=== PATIENT | male | born 1990 | race African-American/Black ===

== ENCOUNTER 2020-09-17 21:24 | Emergency (ER) | payer OTHER, MEDICAID, SELFPAY ==
[2020-09-17 21:33] VITALS: BP 135/86; PULSE 64; RESP 18; TEMP 36.3; O2SAT 100
--- NOTE | 2020-09-17 21:39 | DI.RAD.S_ITS ---
PROCEDURE: XR CHEST 2V INDICATIONS: panic,can not get a good breath TECHNIQUE: 2 views of the chest were acquired. COMPARISON: None. FINDINGS: Surgical changes and devices: None. Lungs and pleura: Lungs are clear. No pleural effusions or pneumothorax. Mediastinum: Mediastinal contours are normal. Heart size is normal. Bones and chest wall: No suspicious bony abnormalities. Soft tissues appear unremarkable. IMPRESSION: 1. No acute cardiopulmonary disease. Dictated by: Sylvain Oliveira M.D. on 09/17/2020 at 21:53 Approved by: Sylvain Oliveira M.D. on 09/17/2020 at 21:54
[2020-09-17 23:59] LABS: COVID19 -Nasal RAPID Negative (Negative)
[2020-09-18 00:05] VITALS: BP 129/79; PULSE 60; RESP 18; O2SAT 98
[2020-09-18 00:51] LABS: Basophils Absolute Auto 0 /uL (0-100); Basophils Percent Auto 0.3 % (0-2); Eosinophils Absolute Auto 200 /uL (0-450); Eosinophils Percent Auto 3.1 % (2-4); Hematocrit 45.9 % (41-53); Hemoglobin 14.2 g/dL (13.5-17.5); Lymphocytes Absolute Auto 2300 /uL (1100-4500); Lymphocytes Percent Auto 33.4 % (25-40); Mean Corpuscular HGB Conc 30.9 % (30-36); Mean Corpuscular Hemoglobin 20.6 PG (26-34); Mean Corpuscular Volume 66.5 fL (80-100); Monocytes Absolute Auto 700 /uL (0-900); Monocytes Percent Auto 10.4 % (3-14); Neutrophils Absolute Auto 3700 /uL (1500-7000); Neutrophils Percent Auto 52.8 % (50-75); Platelet Count 193 X10^3/uL (150-400); Red Cell Distribution Width 15.3 % (11.6-14.8); White Blood Cell Count 6.9 X10^3/uL (4.5-11.0)
[2020-09-18 00:52] LABS: Add Manual Diff / Slide Review SLIDE REVIEW
[2020-09-18 00:55] LABS: Alanine Aminotransferase 82 IU/L (<50); Albumin 4.5 g/dL (3.5-5.0); Albumin Globulin Ratio 1.4 (1.0-2.8); Alkaline Phosphatase 68 U/L (38-126); Aspartate Aminotransferase 40 IU/L (17-59); BUN Creatinine Ratio 20.6 (6-22); Bilirubin Total 0.9 mg/dL (0.2-1.3); Blood Urea Nitrogen 22 mg/dL (9-20); Calcium 9.5 mg/dL (8.4-10.2); Carbon Dioxide 28 mmol/L (22-32); Chloride 102 mmol/L (98-107); Creatine Kinase 78 U/L (55-170); Estimated Glomerular Filt Rate > 60.0 mL/min (>60); Globulin 3.3 g/dL (1.7-4.1); Glucose 111 mg/dL (70-100); HEMOLYSIS < 15 (0-50); Potassium 3.9 mmol/L (3.4-5.1); Sodium 139 mmol/L (137-145); Total Protein 7.8 g/dL (6.3-8.2)
[2020-09-18 01:06] LABS: Troponin I < 0.012 ng/mL (0.01-0.034)
[2020-09-18 01:30] VITALS: BP 135/85; PULSE 68; RESP 20; O2SAT 98
[2020-09-18 01:34] LABS: Anisocytosis 2+; Microcytosis 1+
--- NOTE | 2020-09-18 02:21 | ED.URI ---
HPI - URI/Sore Throat General Chief Complaint: Upper Respiratory Symptoms Stated Complaint: difficulty breathing, CP Time Seen by Provider: 09/17/20 23:03 Source: patient Mode of arrival: Ambulatory Limitations: no limitations History of Present Illness HPI Narrative: This is a 30-year-old male comes in with complaint of cough that has been chronic and ongoing. He states he has also had some difficulty breathing where he wakes up and feels like it is hard to breathe the middle of the night. Patient has not had fevers. He denies chills. He denies any chest pain and symptoms do not seem to be related to exertion. Patient has not had any swelling of the extremities. He denies any other GI or urinary symptoms currently. Patient does note that his has CPAP but he has tried it and found it helpful. Patient finds that his symptoms are worsen worse overnight and when he is sleeping. He does not have any known major issues. He is a former smoker and used to vape. He quit a couple months ago. He does note that he has a history of alpha thalassemia. He does not follow with anyone regularly but has been told he is anemic in the past. He denies any major cardiac family history, pulmonary embolic history. Related Data Previous Rx's Medication Instructions Recorded famotidine 40 mg tablet (Pepcid) 40 mg PO DAILY #30 tab 09/18/20 Review of Systems Review of Systems ROS Unobtainable: All systems reviewed & are unremarkable except as noted in HPI and below Patient History Medical History (Updated 09/18/20 @ 02:52 by Marialuisa Carranza DO) Alpha (0) thalassemia Social History Smoking Status: Former smoker Smoking Status: Former smoker alcohol intake frequency: holidays/special occasions only Substance Use Type: does not use Exam Narrative Exam Narrative: GENERAL: Alert and oriented x three, well-nourished male in mild distress. HEENT: Head normocephalic, atraumatic, EOMI, pupils reactive, face symmetric, moist mucous membranes NECK: Supple, full range of motion CARDIOVASCULAR: Regular rate and rhythm without murmurs, rubs or gallops. RESPIRATORY: Breath sounds equal bilaterally, no wheezes rales or rhonchi. ABDOMEN: Soft, nontender. Normoactive bowel sounds all 4 quadrants. No guarding or rebound, rigidity, no mass : No CVA tenderness EXTREMITIES: Normal range of motion, no clubbing or edema. Neurovascularly intact NEUROLOGICAL: Cranial nerves II through XII grossly intact. Moving all extremities SKIN: Warm, dry, no petechiae, no rashes or lesions. Initial Vital Signs Initial Vital Signs: Vital Signs Temperature 97.3 F L 09/17/20 21:33 Pulse Rate 64 09/17/20 21:33 Respiratory Rate 18 09/17/20 21:33 Blood Pressure 135/86 09/17/20 21:33 Pulse Oximetry 100 09/17/20 21:33 Scores HEART Score Heart Score history: Slightly Suspicious Heart Score EKG: Non-Specific repolarization disturbance Heart Score Age: < 45 years old Heart Score risk factors: No known risk factors Heart Score troponin: < or = to normal limit Heart Score Total: 1 Course Orders Ordered: ED Orders 09/17/20 21:39 Chest [XR chest 2V] Stat 09/18/20 EKG-12 Lead Stat 09/18/20 00:38 Complete Blood Count AUTO DIFF Stat Comprehensive Metabolic Panel Stat Troponin & CK Cardiac Panel Stat 09/18/20 00:40 COVID19 -Nasal swab/Pre-Proc Stat Vital Signs Vital signs: Vital Signs - 8 hr 09/17/20 21:33 Temperature 97.3 F L Pulse Rate 64 Respiratory Rate 18 Blood Pressure 135/86 Pulse Oximetry 100 MDM - URI/Sore Throat Lab Data Result diagrams: 09/18/20 00:38 09/18/20 00:38 Labs: Lab Results 09/17/20 09/18/20 09/18/20 Range/Units 23:15 00:38 00:38 WBC 6.9 (4.5-11.0) X10^3/uL RBC 6.90 H (4.5-5.9) X10^6/uL Hgb 14.2 (13.5-17.5) g/dL Hct 45.9 (41-53) % MCV 66.5 L (80-100) fL MCH 20.6 L (26-34) PG MCHC 30.9 (30-36) % RDW 15.3 H (11.6-14.8) % Plt Count 193 (150-400) X10^3/uL Neut % (Auto) 52.8 (50-75) % Lymph % (Auto) 33.4 (25-40) % Dickens % (Auto) 10.4 (3-14) % Eos % (Auto) 3.1 (2-4) % Baso % (Auto) 0.3 (0-2) % Neut # (Auto) 3700 (1943-0211) /uL Lymph # (Auto) 2300 (7186-3729) /uL Dickens # (Auto) 700 (0-900) /uL Eos # (Auto) 200 (0-450) /uL Baso # (Auto) 0 (0-100) /uL RBC Morphology See below Anisocytosis 2+ H Microcytosis 1+ H Sodium 139 (137-145) mmol/L Potassium 3.9 (3.4-5.1) mmol/L Chloride 102 (98-107) mmol/L Carbon Dioxide 28 (22-32) mmol/L BUN 22 H (9-20) mg/dL Creatinine 1.07 (0.66-1.25) mg/dL Estimated GFR > 60.0 (>60) mL/min BUN/Creatinine Ratio 20.6 (6-22) Glucose 111 H (70-100) mg/dL Calcium 9.5 (8.4-10.2) mg/dL Total Bilirubin 0.9 (0.2-1.3) mg/dL AST 40 (17-59) IU/L ALT 82 H (<50) IU/L Alkaline Phosphatase 68 (38-126) U/L Total Creatine Kinase 78 (55-170) U/L CK-MB (CK-2) TNP CK-MB (CK-2) Rel Index TNP Troponin I < 0.012 (0.01-0.034) ng/mL Total Protein 7.8 (6.3-8.2) g/dL Albumin 4.5 (3.5-5.0) g/dL Globulin 3.3 (1.7-4.1) g/dL Albumin/Globulin Ratio 1.4 (1.0-2.8) SARS-CoV-2 (PCR) Negative (Negative) Imaging Data Chest x-ray: Radiologist's Impression: Gómez Fox 30 M [address] [id number] ReportSigned Patient: Gómez Fox R#: [id number]: 1990Acct:[id number]/Sex: 30 / MDate of Service: 09/17/20Loc: EDAccession Number: [id number] Procedure: XR chest 2V Ordering Provider: Marialuisa Carranza D.O. PROCEDURE: XR CHEST 2V INDICATIONS: panic,can not get a good breath TECHNIQUE: 2 views of the chest were acquired. COMPARISON: None. FINDINGS: Surgical changes and devices: None. Lungs and pleura: Lungs are clear. No pleural effusions or pneumothorax. Mediastinum: Mediastinal contours are normal. Heart size is normal. Bones and chest wall: No suspicious bony abnormalities. Soft tissues appear unremarkable. IMPRESSION: 1. No acute cardiopulmonary disease. Dictated by: Sylvain Oliveira M.D. on 09/17/2020 at 21:53 Approved by: Sylvain Oliveira M.D. on 09/17/2020 at 21:54 ECG Data Interpretation: Sinus bradycardia with sinus arrhythmia. Rate of 50 7p are 174 QRS 88 QTC 4 for 3. Nonspecific change. MDM Narrative Medical decision making narrative: this a 30-year-old male comes emergency department complaint of difficulty breathing and cough particularly worsened at night. Patient states he had tried some antihistamines which she has found minimal helpful. His has a sleep apnea machine which he has found somewhat helpful. He does have a history of using tobacco in the form of vaping and has quit recently. Patient's labs, chest x-ray and EKG are not concerning. Discussed with patient he needs to set up a primary care to follow up for his thalassemia, primary care referral was given so that he can be evaluated for possible sleep study, PFTs if needed and also discussed trying some Pepcid as reflux can also sometimes cause cough or episodes of difficulty breathing and this would be an easy initial step to try for his symptoms. Patient feels comfortable with this plan. All questions were answered. Return precautions were discussed. Discharge Plan Departure Patient Disposition: Home Clinical Impression: Cough Instructions: Cough Activity Restrictions/Additional Instructions: There are many reasons for your symptoms. A primary care physician can help you be further evaluated, evaluate you for risk factors and make sure to optimize your health. Included below is referral. If they are unable to take your insurance. Call the number on your insurance card to see who is available to you locally. It is excellent that you quit vaping this can cause damage to her lungs and may also be part of your cause of symptoms. I would recommend trying medication for heartburn or reflux as this can cause chronic cough in some individuals and is easily treated. I will give at least a week of medication to see if you have any improvement in symptoms. Changes on your lab work which is likely related to your thalassemia. Prescription sent to [facility] in [place] Please return for fevers, new or worsening chest pain, shortness of breath, passing out, new swelling in her extremities, coughing up blood, persistent vomiting, black or bloody stools or other new or concerning symptoms. Prescriptions: New famotidine [Pepcid] 40 mg tablet 40 mg PO DAILY Qty: 30 RF: 0 Referrals: Rome Sargent MD [Physician] -
[2020-09-18 02:55] VITALS: BP 120/81; PULSE 56; RESP 16; O2SAT 98
== END 2020-09-18 03:03 | disposition home or self-care (01) ==
PROVIDERS: Emergency Provider Emergency Medicine
DX: R05 Cough (principal); R06.00 Dyspnea, unspecified; R07.9 Chest pain, unspecified; Z20.822 Contact with and (suspected) exposure to COVID-19
CPT/HCPCS: 36415; 71046; 80053; 82550; 84484; 85025; 87635; 93005; 93010; 99284; C9803